=== PATIENT | male | born 1990 | race Caucasian/White ===

== ENCOUNTER → 2020-06-06 14:00 | Outpatient (CLI) | payer BC, SELFPAY ==
[2020-06-06 14:41] LABS: COVID19 -Nasal RAPID POSITIVE (Negative)
== END ==
PROVIDERS: Visit Provider Physician Assistant
DX: Z11.59 Encounter for screening for other viral diseases (principal); R05 Cough
CPT/HCPCS: 87635

== ENCOUNTER → 2021-03-29 16:33 | Outpatient (CLI) | payer BC, SELFPAY ==
[2021-03-29 17:00] LABS: COVID19 -Nasal RAPID Negative (Negative)
== END ==
PROVIDERS: Referring Provider Nurse Practitioner; Visit Provider Nurse Practitioner
DX: R09.81 Nasal congestion (principal); Z20.822 Contact with and (suspected) exposure to COVID-19
CPT/HCPCS: 87635